=== PATIENT | female | born 1990 | race African-American/Black ===

== ENCOUNTER 2021-10-10 17:20 | Emergency (ER) | payer BC ==
[~2021-10-10] VITALS: Ht 177.8 cm; Wt 74.8 kg
[2021-10-10 17:22] VITALS: BP 100/40
[2021-10-10] MEDS ORDERED: DEXTROSE 50% 50 ML SYR IVP ONE (17:25)
[2021-10-10] MEDS ORDERED: NALOXONE 0.4 MG/ML VIAL IVP ONE (17:25)
[2021-10-10] MEDS ORDERED: NACL 0.9% 1,000 ML IV ONE (17:25)
--- NOTE | 2021-10-10 17:30 | NUR ---
20G IV ESTABLISHED IN R HAND
--- NOTE | 2021-10-10 17:32 | NUR ---
SPOKE WITH RICHI ALLISON. MONITOR FOR SEDATION/MUSCLE RELAXATION. MONITOR EKGS FOR QT PROLONG. MONITOR FOR SEIZURES, GIVE BENZOS. MONITOR OXYGEN, RULE OUT TYNENOL INTAKE.
--- NOTE | 2021-10-10 17:33 | NUR ---
PULLED DEXTROSE AMP UNDER DANO OROZCO
[2021-10-10] MEDS ORDERED: ONDANSETRON 4 MG/2 ML VIAL IVP ONE (17:35)
--- NOTE | 2021-10-10 17:45 | NUR ---
30 Y/O FEMALE BIBA FROM HOME PER PT FATHER FOUND NEXT TO EMPTY BOTTLE OF CYCLOBENZAPINE, UNKNOWN AMOUNT TAKEN. PER EMT 4MG NARCAN GIVEN IN PT ANSWERS TO NAME ONLY A&OX1. IV ESTABLISHED TO LEFT AC 20G 500NS STARTED. GCS OF 8 ON ARRIVAL. PT STILL ALTERED AT THIS TIME AND UNABLE TO ANSWER QUESTIONS. NO SIGNS OF DISTRESS NOTED, SKIN INTACT. VITAL SIGNS STABLE. PT PLACED ON COMMUNICATIONS EXECUTIVE BEDSIDE AND PLACED INTO GOWN. PMH: DEPRESSION ALLERGIES: UNOBTAINABLE
--- NOTE | 2021-10-10 17:50 | NUR ---
18G IV ESTABLISHED IN R UPPER ARM VIA ULTRASOUND BY BEKAH MILLS
--- NOTE | 2021-10-10 18:00 | NUR ---
BLOODWORK COLLECTED FROM 18G IV ESTABLISHED IN R UPPER ARM AND HANDED TO PROCESS SAFETY ENGINEER BEDSIDE
--- NOTE | 2021-10-10 18:00 | NUR ---
ARMANDO CROSS AND ARMANDO MOTLEY COLLECTED AND HANDED TO PANTOGRAPH TRANSFERRER
--- NOTE | 2021-10-10 18:10 | NUR ---
# 16 FR Urinary catheter inserted utilizing sterile technique. Immediate return of 20 ml YELLOW urine noted. Urine sample collected and sent to lab. Pt tolerated procedure WELL.
--- NOTE | 2021-10-10 18:18 | NUR ---
UA COLLECTED AND WALKED OVER TO LAB
[2021-10-10 18:19] LABS: BASOPHILS % (AUTO) 0.9 % (0.0-2.0); EOSINOPHILS # (AUTO) 0.3 K/uL (0-0.4); EOSINOPHILS % (AUTO) 5.7 % (0.0-4.0); HEMATOCRIT 32.5 % (36-48); HEMOGLOBIN 10.7 g/dL (12.0-16.0); LYMPHOCYTES # (AUTO) 1.4 K/uL (2.5-16.5); LYMPHOCYTES % (AUTO) 30.1 % (20.5-51.1); MEAN CORPUSCULAR HEMOGLOBIN 28 pg (27-31); MEAN CORPUSCULAR HGB CONC 33 g/dL (33-37); MEAN CORPUSCULAR VOLUME 84.7 fL (80-94); MONOCYTES # (AUTO) 0.5 K/uL (0.8-1.0); MONOCYTES % (AUTO) 10.7 % (1.7-9.3); NEUTROPHILS # (AUTO) 2.5 K/uL (1.8-7.7); NEUTROPHILS % (AUTO) 52.6 % (42.2-75.2); PLATELET COUNT (AUTO) 247 K/uL (140-450); RED BLOOD CELL COUNT(AUTO) 3.83 MIL/uL (4.20-5.40); RED CELL DISTRIBUTION WIDTH 13.8 % (11.6-13.7); WHITE BLOOD COUNT (AUTO) 4.7 K/uL (4.8-10.8)
--- NOTE | 2021-10-10 18:20 | NUR ---
PT ACTIVELY CRYING AND TRYING TO GET OUT OF BED. CALMED PATIENT DOWN AND PROVIDED WITH WARM BLANKET
--- NOTE | 2021-10-10 18:20 | NUR ---
PT PLACED ON 5150 HOLD BY RADAMES MCLEAN UNDER SI. 5150 IN PATIENT CHART
[2021-10-10] MEDS ORDERED: HALOPERIDOL IM 5 MG/ML VIAL ONE (18:22)
[2021-10-10] MEDS ORDERED: LORazepam 2 MG/ML VIAL ONE (18:23)
[2021-10-10] MEDS ORDERED: LORazepam 2 MG/ML VIAL IVP ONE (18:25)
[2021-10-10] MEDS ORDERED: HALOPERIDOL IM 5 MG/ML VIAL IVP ONE (18:25)
--- NOTE | 2021-10-10 18:33 | NUR ---
18G IV REMOVED FROM PATIENT R UPPER ARM DUE TO PATIENT REQUEST
--- NOTE | 2021-10-10 19:14 | NUR ---
Pt report given to CORRY NEVAREZ. Transfer of care at this time.
[2021-10-10 19:36] LABS: ALBUMIN 3.4 g/dL (3.4-5.0); ANION GAP 11.4 (8-16); ASPARTATE AMINOTRANSFERASE 17 U/L (15-37); CARBON DIOXIDE 24.1 mmol/L (21-32); CHLORIDE 106 mmol/L (98-107); CREATININE 0.9 mg/dL (0.6-1.3); GFR ARICAN-AMERICAN 94 mL/min (>90); GLUCOSE 157 mg/dL (74-106); POTASSIUM 3.5 mmol/L (3.5-5.1); SODIUM SERUM 138 mmol/L (136-145); TOTAL BILIRUBIN 0.6 mg/dL (0.0-1.0); UREA NITROGEN, BLOOD 13 mg/dL (7-18)
[2021-10-10 19:44] LABS: ACETAMINOPHEN < 0.5 ug/ml (10-30); SALICYLATE < 2.8 mg/dL (2.8-20.0)
--- NOTE | 2021-10-10 20:00 | NUR ---
RESTING IN BED WITH EYES CLOSED, RESPIRATIONS REGULAR AND UNLABORED
[2021-10-10 21:06] LABS: APPEARANCE,URINE CLEAR (CLEAR); BILIRUBIN,URINE NEGATIVE (NEGATIVE); BLOOD, URINE NEGATIVE (NEGATIVE); COLOR,URINE YELLOW (YELLOW); LEUKOCYTE ESTERASE ,URINE NEGATIVE (NEGATIVE); NITRITE, URINE NEGATIVE (NEGATIVE); PH,URINE 5.5 (5.0-9.0); UGLUCOSE 2+ (NEGATIVE)
[2021-10-10 21:19] LABS: RBC,URINE 0-5 /HPF (0-5); WBC,URINE 0-5 /HPF (0-5)
--- NOTE | 2021-10-10 22:03 | NUR ---
CALL FROM POISON CONTROL. RECOMENDATION IS TO OBSERVE FOR 6 HOURS
[2021-10-10 22:45] LABS: BARBITURATE, URINE NEGATIVE ng/ml (NEG <=200); BENZODIAZEPINE, URINE NEGATIVE ng/mL (NEG <=200); CANNABINOID, URINE NEGATIVE ng/mL (NEG <=50); COCAINE, URINE NEGATIVE ng/mL (NEG <=300); OPIATE, URINE NEGATIVE ng/mL (NEG <=2000); PHENCYCLIDINE SCREEN,URINE NEGATIVE ng/mL (NEG <=25)
--- NOTE | 2021-10-11 | NUR ---
CONTINUES TO REST WITH EYES CLOSED. RESPIRATIONS REGULAR AND UNLABORED
--- NOTE | 2021-10-11 04:00 | NUR ---
RESTING IN BED WITH EYES CLOSED. RESPIRATIONS REGULAR AND UNLABORED
--- NOTE | 2021-10-11 06:00 | NUR ---
AWAKE. PT ASKING "MAY I GO HOME NOW ?" PLAN OF CARE EXPLAINED
--- NOTE | 2021-10-11 06:13 | NUR ---
DR. GARCIA AT BEDSIDE
--- NOTE | 2021-10-11 07:24 | NUR ---
REPORT RECEIVED FROM CORRY NEVAREZ. ALL CARE TRANSFERRED AT THIS TIME.
--- NOTE | 2021-10-11 07:24 | NUR ---
REPORT RECEIVED FROM CORRY NEVAREZ. ALL CARE TRANSFERRED AT THIS TIME.
--- NOTE | 2021-10-11 08:00 | NUR ---
SPOKE WITH FATHER IN THE LOBBY TO GIVE PT UPDATE.
--- NOTE | 2021-10-11 09:09 | NUR ---
[facility] received packet. Aware patient is unfunded.
--- NOTE | 2021-10-11 09:46 | NUR ---
CC received updated facesheet. Will begin placement.
--- NOTE | 2021-10-11 09:54 | NUR ---
Packet faxed to: Casie Leblanc [facility]
--- NOTE | 2021-10-11 10:23 | NUR ---
SPOKE WITH ROXANNE FROM [facility]. PT WILL BE UNDER DR. ALCAZAR.
--- NOTE | 2021-10-11 11:15 | NUR ---
Patient to be transferred to [facility] [place] 2]. Is being transferred due to HIGHER LEVEL OF CARE. Receiving facility has accepting physician and available space. ER physician has signed transfer form. Patient or responsible democrat has agreed to transfer and signed form. Patient belongings inventoried and will be sent with patient. Copy of nursing notes, lab reports, EKG, Physicians Orders and X-rays to be sent with patient. Report called to ROXANNE Kenny at receiving facility. [facility] ambulance service has been called for transfer. ETA is 1130.
[2021-10-11 11:32] VITALS: BP 100/54
== END 2021-10-11 11:32 ==
LOC: MED 17:20
DX: R45.851 Suicidal ideations (principal); Z20.822 Contact with and (suspected) exposure to COVID-19; F32.9 Major depressive disorder, single episode, unspecified
CPT/HCPCS: 36415; 80053; 80305; 81001; 81025; 85025; 87426; 93005; 96361; 96374; 96375; 99291; 99292; G0480; G0482; J1630; J2060; J2310; J2405; J7030; J7060; U0003